=== PATIENT | male | born 1965 | race Caucasian/White ===

== ENCOUNTER 2016-11-11 21:49 | Emergency (ER) | payer MEDICAID ==
[~2016-11-11] VITALS: Ht 172.7 cm; Wt 72.6 kg
[~2016-11-11 21:49] MED LIST: HUMALOG100 UNITS/ SUBQ
[2016-11-11 22:16] VITALS: BP 123/87
--- NOTE | 2016-11-11 23:02 | NUR ---
PT AMBULATED TO BED 3 AT THIS TIME.
--- NOTE | 2016-11-11 23:05 | NUR ---
Patient being evaluated by at bedside.
--- NOTE | 2016-11-11 23:05 | NUR ---
50Y/M PATIENT PRESENTS TO ER C/O OF CELLULITIS TO LT THIGH. HE WAS BITTEN BY A DOG 11/2 WK AGO. NO PAST MED HX.DENIES N/V/D; SKIN IS PINK/WARM/DRY, LT.THIGH CELLULITIS NOTED; AAOX4 WITH EVEN AND STEADY GAIT; LUNGS CLEAR BL; HR EVEN AND REGULAR; PT DENIES ANY FEVER, CP, SOB, OR COUGH AT THIS TIME; PATIENT STATES PAIN OF 5/10 AT THIS TIME; VSS; PATIENT POSITIONED FOR COMFORT; HOB ELEVATED; BEDRAILS UP X2; BED DOWN. ER MD MADE AWARE OF PT STATUS.
--- NOTE | 2016-11-11 23:10 | NUR ---
CLEAN CELLULITIS WITH NA, PAT DRY, COVER WITH DRY DRESSING, PATIENT TOLERATED WELL.
--- NOTE | 2016-11-11 23:39 | NUR ---
Patient discharged with v/s stable. Written and verbal after care instructions given and explained. Patient alert, oriented and verbalized understanding of instructions. Ambulatory with steady gait. All questions addressed prior to discharge. ID band removed. Patient advised to follow up with PMD. Rx of TYLENOL 325 MG, CLEOCIN 300MG given. Patient educated on indication of medication including possible reaction and side effects. Opportunity to ask questions provided and answered.
[2016-11-11 23:40] VITALS: BP 123/87
== END 2016-11-11 23:39 | disposition home or self-care (01) ==
LOC: MED 21:49
DX: L03.116 Cellulitis of left lower limb (principal); F10.129 Alcohol abuse with intoxication, unspecified; E11.9 Type 2 diabetes mellitus without complications; F17.210 Nicotine dependence, cigarettes, uncomplicated; Z79.4 Long term (current) use of insulin; Z88.0 Allergy status to penicillin; Y90.9 Presence of alcohol in blood, level not specified

== ENCOUNTER 2019-07-28 18:18 | Emergency (ER) | payer MEDICAID, OTHER ==
[~2019-07-28] VITALS: Ht 172.7 cm; Wt 68.0 kg
[~2019-07-28 18:18] MED LIST changes: +HUM SUBQ; -HUMALOG100 UNITS/ SUBQ
[2019-07-28 18:34] VITALS: BP 124/83
[2019-07-28 18:53] VITALS: BP 124/83
== END 2019-07-28 20:13 | disposition left against medical advice (07) ==
LOC: MED 18:18
DX: L03.113 Cellulitis of right upper limb (principal); M25.571 Pain in right ankle and joints of right foot; Z53.21 Procedure and treatment not carried out due to patient leaving prior to being seen by health care provider

== ENCOUNTER 2020-07-08 09:53 | Emergency (ER) | payer OTHER ==
[~2020-07-08] VITALS: Ht 172.7 cm; Wt 54.4 kg
--- NOTE | 2020-07-08 09:55 | NUR ---
Pt reports feeling "drowsy" and wants to let Dr. Lion know. Dr. Lion made aware. No new orders at this time.
[2020-07-08 09:56] VITALS: BP 133/76
[2020-07-08] MEDS ORDERED: ASPIRIN 325 MG TAB PO ONE (10:00)
--- NOTE | 2020-07-08 10:00 | NUR ---
54/M bright in by [facility] with complaints of chest pain after being arrested by police. Pt was arrested by police and was placed in back of police vehicle and pt began to complain chest pain and threw himself out of the car. Pt denies head pain or LOC. Pt arrived to ED on gurney cuffed with handcuff to right arm and gurney. Pt is yelling and not answering questions. Pt yelling "My chest hurts! Can I get some water!" VSS. Pt refused ASA from EMS.
--- NOTE | 2020-07-08 10:00 | NUR ---
Pt refusing blood draw, EKG and all treatment and exams. Dr. Lion made aware.
--- NOTE | 2020-07-08 10:03 | NUR ---
PATIENT REFUSING EKG STATING HE JUST WANTS TO LEAVE.
--- NOTE | 2020-07-08 10:06 | NUR ---
Patient does not wish to proceed with medical care recommended by Dr. Lion. Patient given information related to possible complications, up to and including , which could occur as a result of leaving hospital at this time. Patient verbalizes understanding of risks involved leaving against medical advice. Patient has signed AMA form. Prebook form given to [facility]. Pt medically screened and cleared by Dr. Lion. Pt released to custody of [facility].
[2020-07-08] MEDS ORDERED: ASPIRIN 325 MG TABEC PO SCH ×2 (10:15→10:21)
[2020-07-09] MEDS ORDERED: ASPIRIN 325 MG TABEC PO SCH (09:00)
== END 2020-07-08 10:06 ==
LOC: MED 09:53
DX: R07.9 Chest pain, unspecified (principal); E11.9 Type 2 diabetes mellitus without complications; Z79.4 Long term (current) use of insulin; Z88.0 Allergy status to penicillin
CPT/HCPCS: 99283

== ENCOUNTER 2022-03-23 09:57 | Emergency (ER) | payer OTHER ==
[~2022-03-23] VITALS: Ht 165.1 cm; Wt 65.8 kg
[2022-03-23 10:02] VITALS: BP 147/96
[2022-03-23 11:30] VITALS: BP 162/82
== END 2022-03-23 10:11 | disposition home or self-care (01) ==
LOC: MED 09:57
DX: R41.82 Altered mental status, unspecified (principal); F19.10 Other psychoactive substance abuse, uncomplicated; E11.9 Type 2 diabetes mellitus without complications; Z88.0 Allergy status to penicillin; Z79.84 Long term (current) use of oral hypoglycemic drugs
CPT/HCPCS: 99283

== ENCOUNTER 2022-08-11 23:02 | Emergency (ER) | payer OTHER ==
[~2022-08-11] VITALS: Ht 175.3 cm; Wt 40.8 kg
[2022-08-11 23:02] VITALS: BP 152/90
--- NOTE | 2022-08-11 23:02 | NUR ---
PT VICKEY DE LEON, TAKEN TO CHAIR
[2022-08-11 23:30] VITALS: BP 152/90
--- NOTE | 2022-08-11 23:30 | NUR ---
PATIENT BIB [place] [employer]. PATIENT EXAMINED BY DR. CHOU. PATIENT MEDICALLY CLEARED AND RELEASED IN CUSTODY IN STABLE CONDITION. ORIGINAL PRE-BOOK FORM GIVEN TO OFFICER PEREZ #[id number].
== END 2022-08-11 23:30 ==
LOC: MED 23:02
DX: Z02.89 Encounter for other administrative examinations (principal)
CPT/HCPCS: 99283